=== PATIENT | male | born 1960 | race Caucasian/White ===

== ENCOUNTER → 2021-07-12 | Outpatient (REF) ==
--- NOTE | 2021-07-12 12:11 | REP ---
INDICATION: [facility]- DDD COMPARISON: None. TECHNIQUE: AP, lateral, coned-down views of the lumbar spine. FINDINGS: Three views of the lumbosacral spine demonstrate satisfactory alignment and lordosis without acute fracture / compression injury or subluxation. [id number] advanced multilevel degenerative changes includes elements of endplate sclerosis, marginal spurring, disc space narrowing and facet hypertrophy. Findings progressively increased from L3-4 through L5-S1. IMPRESSION: 1. No acute fracture / compression injury or subluxation. 2. Multilevel degenerative spondylosis <Electronically signed by Christophe Herrera > 07/12/21 [id number]
== END ==
LOC: M PLAIMG 11:00
PROVIDERS: ATTEND Internal Medicine
DX: Z02.71 Encounter for disability determination (principal); M47.816 Spondylosis without myelopathy or radiculopathy, lumbar region